=== PATIENT | female | born 1995 | race Caucasian/White ===

== ENCOUNTER 2016-09-27 08:00 | Outpatient (CLI) | payer BC | END 2016-09-27 08:01 | disposition home or self-care (01) | DX: R51 Headache (principal) ==

== ENCOUNTER 2017-01-29 15:20 | Outpatient (CLI) | payer BC | END 2017-01-29 15:21 | LOC: LAB.N 15:20 | PROVIDERS: ATTEND Physician Assistant | DX: R19.7 Diarrhea, unspecified (principal) | CPT/HCPCS: 36415; 86762; 86765 ==

== ENCOUNTER 2017-01-31 17:35 | Outpatient (CLI) | payer BC ==
[2017-02-05 11:22] LABS: TEST RESULT REPORT (())
== END 2017-01-31 17:36 | disposition home or self-care (01) ==
LOC: LAB.R 17:35
PROVIDERS: ATTEND Physician Assistant
DX: R19.7 Diarrhea, unspecified (principal)
CPT/HCPCS: 81599; 83630; 87045; 87046; 87177; 87209; 87329; 87338; 87493

== ENCOUNTER 2017-02-05 14:11 | Outpatient (CLI) | payer BC ==
--- NOTE | 2017-02-05 16:33 | XRAY Report ---
ACUTE ABDOMEN SERIES: 02/05/2017 CLINICAL INDICATION: Acute on chronic diarrhea. FINDINGS: Supine and upright views of the abdomen and a frontal view of the chest were obtained. The cardiac silhouette is within normal limits. The lungs are clear. No effusion or pneumothorax is p resent. The bowel gas pattern is normal. No free intraperitoneal gas is appreciated. No small bowel dilatatio n is seen. IMPRESSION: NORMAL ACUTE ABDOMEN SERIES. JOB #: [id number] EXT JOB #:[id number]
== END 2017-02-05 14:12 | disposition home or self-care (01) ==
LOC: DI.N 14:11
PROVIDERS: ATTEND Physician Assistant
DX: R19.7 Diarrhea, unspecified (principal)
CPT/HCPCS: 74022

== ENCOUNTER 2020-07-11 15:07 | Outpatient (CLI) | payer MEDICAID ==
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
== END 2020-07-11 15:08 | disposition home or self-care (01) ==
LOC: SC 15:07
PROVIDERS: ATTEND Internal Medicine Pulmonary Disease
DX: R53.83 Other fatigue (principal); R06.83 Snoring; G47.8 Other sleep disorders; R51.9 Headache, unspecified; R41.89 Other symptoms and signs involving cognitive functions and awareness; E66.3 Overweight; Z68.26 Body mass index [BMI] 26.0-26.9, adult; F51.04 Psychophysiologic insomnia

== ENCOUNTER 2020-07-14 17:01 | Outpatient (CLI) | payer MEDICAID ==
[2020-07-14 21:11] LABS: THYROID STIMULATING HORMONE 1.81 uIU/mL (0.34-5.60)
[2020-07-14 21:14] LABS: FREE T4 (FREE THYROXINE) 0.71 ng/dL (0.58-1.64)
== END 2020-07-14 17:02 | disposition home or self-care (01) ==
LOC: DI.N 17:01
PROVIDERS: ATTEND Family Medicine Sports Medicine
DX: R63.5 Abnormal weight gain (principal)
CPT/HCPCS: 36415; 84439; 84443

== ENCOUNTER 2020-07-25 13:27 | Outpatient (CLI) | payer MEDICAID | END 2020-07-25 13:28 | disposition home or self-care (01) | LOC: SC 13:27 | PROVIDERS: ATTEND Internal Medicine Pulmonary Disease | DX: R53.83 Other fatigue (principal); R09.02 Hypoxemia; E66.3 Overweight; Z68.26 Body mass index [BMI] 26.0-26.9, adult | CPT/HCPCS: 95806 ==

== ENCOUNTER 2020-08-03 10:28 | Outpatient (CLI) | payer MEDICAID ==
--- NOTE | 2020-08-03 10:32 | SLEEP CARE CONSULTATION ---
Information from patient questionnaire entered by Ema Brower. I have reviewed and concur with the information entered by Ema Brower. This document represents the service I personally performed and the decisions made by , Sarah Martinez ARNP. History of Present Illness Service Date and Time: 08/03/2020 1020 Initial [place] Sleepiness Scale score: 0 (in 2019) Current [place] Sleepiness Scale score: 1 Additional HPI information: ADRIANA FRANCIS returns via Telehealth visit for follow up and results of the recently performed home sleep study. The patient was informed of the following findings: She had no significant sleep disordered breathing with an average AHI of 3.2 and rachelle oxygen saturation of 88%. I explained the pathophysiology behind obstructive sleep apnea. Patient does not have sleep apnea and was advised how weight gain could increase the risk of developing sleep apnea in the future. I strongly encouraged the patient to lose weight. Patient does not have significant sleep disordered breathing but has slightly elevated AHI in supine position so advised positional therapy. Methods to achieve positional management therapy were discussed; such as, positioning with pillows, wearing a T-shirt with tennis balls sewn into the back, Rematee shirt, Zzomba belt and Slumberbump belt. Pamphlets provided on how to obtain the commercially available products. Patient has light snoring. Snoring can be reduced by weight loss. Weight loss is best achieved with diet consult. Patient instructed to contact PCP for referral. Snoring can also be treated with an oral appliance from a dentist. Advised to check insurance coverage. In addition, an ENT evaluation can be do to see if other treatment is indicated. Sleep Study - Results Type of Sleep Study: Home sleep study Prior sleep studies: No Polysomnography/Home Sleep Study results: Physician Impression: The quality of the study is good. The length of the study is adequate (> 240 minutes). Please also see the tabulated and graphic data. 1. Obstructive Sleep Apnea-Hypopnea (ICD-10 G47.33), none, with an AHI of 3.2/hr and rachelle SaO2 of 88%. During the study, the patient had 9 apneas (9 obstructive, 0 central, 0 mixed) and 6 hypopneas. The longest episode lasted 30.0 seconds. The respiratory events occurred more frequently during supine sleep (supine AHI was 5.1 and non-supine, 0.92). 2. Hypoxemia (ICD-10 R09.02), minimal, with the lowest oxygen saturation of 88 % and 0.2 minutes with SaO2 under 90%. Baseline oxygen saturation was normal (Average oxygen saturation was 96%). Recommendation: No treatment is necessary. However, because the supine AHI was slightly elevated at 5.1, the patient should avoid sleeping supine. If there is a strong suspicion for sleep- disordered breathing, an in-laboratory polysomnography should be considered Allergies and Home Medications Drug allergies reviewed: Yes (fluoxetine) Home medication list reviewed: Yes (no changes) Review of Systems Review of systems same as previous: Yes (no changes) Physical Exam Vital signs obtained and entered by: Telehealth visit to limit exposure during Covid pandemic Height: 5 ft 3 in Impression and Plan 1. Snoring but no significant sleep disordered breathing. Patient did have a mildly elevated supine AHI of 5.1 and patient was advised to avoid supine sleep. Patient advised that often weight loss will reduce snoring as well as apnea risk. An oral appliance can also be used for snoring. This would require a dental consultation. Patient cautioned not to use other online appliances as can cause bite issues. A list of accredited dentists in area and one local dentist who makes oral appliances given. Patient is advised to check if insurance will cover. An ENT consult can also be helpful to determine if any other treatment is an option. * Attempt to lose weight * Avoid supine sleep * Avoid alcohol consumption near bedtime * The patient is cautioned about driving until sleepiness is completely resolved. * Return as needed. Counseling Topics: Weight loss health impact Visit Type: Telehealth Video Video Type: Kary Patient Location: Home Location of Provider: Office Patient agrees and consents to this telehealth visit type: Yes Time Spent with Patient (minutes): 15 Provider Statement: I spent 100% of the Telehealth Video Call with the patient with greater than 50% spent counseling the patient and coordination of care.
== END 2020-08-03 10:29 | disposition home or self-care (01) ==
LOC: SC 10:28
PROVIDERS: ATTEND Nurse Practitioner Family
DX: R06.83 Snoring (principal); R53.83 Other fatigue; G47.8 Other sleep disorders; R51.9 Headache, unspecified

== ENCOUNTER 2020-08-21 15:50 | Outpatient (CLI) | payer MEDICAID | END 2020-08-21 23:59 | disposition home or self-care (01) | LOC: COV 15:50 | PROVIDERS: ATTEND Family Medicine | DX: R50.9 Fever, unspecified (principal); Z20.828 Contact with and (suspected) exposure to other viral communicable diseases; R05 Cough; R06.02 Shortness of breath; R09.81 Nasal congestion; R53.83 Other fatigue; R11.2 Nausea with vomiting, unspecified ==

== ENCOUNTER 2020-08-28 07:00 | Outpatient (CLI) | payer MEDICAID ==
[2020-08-28 16:31] LABS: MUDS CUTOFF CONCENTRATIONS CUTOFF CONC BELOW:
[2020-08-28 16:47] LABS: BILIRUBIN,URINE NEGATIVE (NEGATIVE); GLUCOSE, URINE (UA) NEGATIVE (NEGATIVE); KETONES,URINE (UA) NEGATIVE (NEGATIVE); LEUKOCYTE ESTERASE, URINE NEGATIVE (NEGATIVE); NITRITE,URINE NEGATIVE (NEGATIVE); OCCULT BLOOD,URINE TRACE-INTA (NEGATIVE); PH,URINE 5.5 PH (5.0-7.5); PROTEIN,URINE NEGATIVE (NEGATIVE); UROBILINOGEN,URINE 0.2 (NORMAL) E.U./dL (NORMAL)
[2020-08-28 16:49] LABS: CLARITY,URINE CLEAR (CLEAR)
[2020-08-28 16:57] LABS: AMPHETAMINE SCREEN,URINE NEGATIVE (NEGATIVE); BENZODIAZEPINES SCREEN, URINE NEGATIVE (NEGATIVE); COCAINE SCREEN URINE NEGATIVE (NEGATIVE); METHADONE SCREEN, URINE NEGATIVE (NEGATIVE); METHAMPHETAMINES SCREEN, URINE NEGATIVE (NEGATIVE); OPIATE SCREEN, URINE NEGATIVE (NEGATIVE); OXYCODONE SCREEN, URINE NEGATIVE (NEGATIVE); PROPOXYPHENE SCREEN, URINE NEGATIVE (NEGATIVE); TRICYCLIC ANTIDEPRESSANT,URINE NEGATIVE (NEGATIVE)
[2020-08-28 17:00] LABS: BACTERIA,URINE Many /HPF (None Seen); RBC,URINE 0-5 /HPF (0-5); SQUAMOUS EPITHELIAL CELL,UR FEW Squamous (<= Few)
== END 2020-08-28 23:59 | disposition home or self-care (01) ==
LOC: LAB.R 07:00
PROVIDERS: ATTEND Advanced Practice Midwife
DX: Z34.90 Encounter for supervision of normal pregnancy, unspecified, unspecified trimester (principal)
CPT/HCPCS: 80306; 81001; 87086

== ENCOUNTER 2020-09-04 08:00 | Outpatient (CLI) | payer MEDICAID ==
[2020-09-04 20:06] LABS: CANDIDA GROUP DNA NEGATIVE (NEGATIVE); CANDIDA KRUSEI DNA NEGATIVE (NEGATIVE); TRICHOMONAS VAGINALIS DNA NEGATIVE (NEGATIVE)
== END 2020-09-04 23:59 | disposition home or self-care (01) ==
LOC: LAB.R 08:00
PROVIDERS: ATTEND Obstetrics & Gynecology
DX: N89.8 Other specified noninflammatory disorders of vagina (principal)
CPT/HCPCS: 87661; 87801

== ENCOUNTER 2020-09-12 15:38 | Outpatient (CLI) | payer MEDICAID ==
--- NOTE | 2020-09-12 17:44 | Ultrasound Report ---
PROCEDURE: OB First Trimester w/TV INDICATIONS: SUPERVISION OF NORMAL OUTSIDE/PRIOR DATING DATA: Last menstrual period (LMP): Unknown. LMP-based estimated date of delivery (JUANI): Not applicable. First dating scan (date and location): 09/12/2020. Estimated date of delivery (JUANI) from first dating scan: 05/01/2021. TECHNIQUE: Real-time scanning was performed of the fetus and maternal pelvic organs, with image documentation. Endovaginal scanning was also performed to better visualize the fetus and maternal ovaries. COMPARISON: None. FINDINGS: Embryo: Single living intrauterine gestation with an estimated sonographic gestational age of approx imately 7 weeks and 0 days based off crown-rump length measurement of approximately 1.0 cm. By mean g estational sac diameter of 2.5 cm, estimated gestational age is approximately 7 weeks and 4 days. Fet al heart rate measured 132 bpm. Trace perigestational hemorrhage noted. Measurement variability in dating: +/- 4 weeks by LMP, +/- 7 days by mean sac diameter (use before 6 weeks gestation if crown-rump length not able to be measured), +/- 5 days by crown-rump length (6-12 weeks gestation). Maternal organs: Ovaries demonstrate presence of a right corpus luteal cyst measuring 1.9 x 1.9 x 1. 8 cm. No suspicious ovarian/adnexal mass lesions.. IMPRESSION: Single living intrauterine gestation with an estimated sonographic gestational age of approximately 7 weeks and 0 days based off crown-rump length measurement of 1.0 cm. Estimated date of delivery is . Small perigestational hemorrhage. Routine follow-up second trimester anatomic screening survey is recommended. Reviewed by: Cristobal Brasher MD on 09/12/2020 5:42 PM PST Approved by: Cristobal Brasher MD on 09/12/2020 5:42 PM PST Station ID: [id number]
== END 2020-09-12 15:39 | disposition home or self-care (01) ==
LOC: DI 15:38
PROVIDERS: ATTEND Nurse Practitioner Obstetrics & Gynecology
DX: Z34.91 Encounter for supervision of normal pregnancy, unspecified, first trimester (principal)

== ENCOUNTER 2020-09-21 08:00 | Outpatient (CLI) | payer MEDICAID ==
[2020-09-21 10:40] LABS: BASOPHILS % (AUTO) 0.4 %; EOSINOPHILS % (AUTO) 0.4 %; HGB - HEMOGLOBIN 13.1 g/dL (12.0-16.0); LYMPHOCYTES # (AUTO) 2.1 10^3/uL (1.5-3.5); LYMPHOCYTES % (AUTO) 23.3 %; MEAN CORPUSCULAR HEMOGLOBIN 28.7 pg (27.0-31.0); MEAN CORPUSCULAR HGB CONC 32.8 g/dL (32.0-36.0); MEAN CORPUSCULAR VOLUME 87.7 fL (81.0-99.0); MEAN PLATELET VOLUME 10.5 fL (7.9-10.8); MONOCYTES # (AUTO) 0.5 10^3/uL (0.0-1.0); MONOCYTES % (AUTO) 5.9 %; NEUTROPHILS # (AUTO) 6.3 10^3/uL (1.5-6.6); NEUTROPHILS % (AUTO) 69.7 %; PLT - PLATELET COUNT 279 10^3/uL (130-450); RED BLOOD COUNT 4.56 10^6/uL (4.20-5.40); RED CELL DISTRIBUTION WIDTH 13.6 % (12.0-15.0)
[2020-09-21 10:52] LABS: ALBUMIN 3.9 g/dL (3.2-5.5); ALBUMIN/GLOBULIN RATIO 1.2 (1.0-2.2); BILIRUBIN,TOTAL 0.4 mg/dL (0.2-1.0); CALCIUM 9.3 mg/dL (8.5-10.3); CREATININE 0.6 mg/dL (0.4-1.0); TOTAL PROTEIN 7.2 g/dL (6.7-8.2)
[2020-09-21 19:37] LABS: CANDIDA GROUP DNA NEGATIVE (NEGATIVE); CANDIDA KRUSEI DNA NEGATIVE (NEGATIVE); TRICHOMONAS VAGINALIS DNA NEGATIVE (NEGATIVE)
[2020-09-21 22:41] LABS: TRICHOMONAS VAGINALIS DNA NEGATIVE (NEGATIVE)
[2020-09-23 08:17] LABS: HIV AG/AB 4TH GEN NON-REACTIVE (NON-REACTIVE)
[2020-09-23 12:52] LABS: HEPATITIS B SURFACE ANTIGEN NON-REACTIVE (NON-REACTIVE); HEPATITIS C ANTIBODY NON-REACTIVE (NON-REACTIVE)
== END 2020-09-21 23:59 | disposition home or self-care (01) ==
LOC: LAB 08:00
PROVIDERS: ATTEND Advanced Practice Midwife
DX: O26.899 Other specified pregnancy related conditions, unspecified trimester (principal); N89.8 Other specified noninflammatory disorders of vagina; Z36.89 Encounter for other specified antenatal screening; Z12.4 Encounter for screening for malignant neoplasm of cervix; Z11.3 Encounter for screening for infections with a predominantly sexual mode of transmission
CPT/HCPCS: 36415; 80053; 81599; 82239; 85025; 86592; 86762; 86787; 86803; 86850; 86900; 86901; 87340; 87389; 87491; 87591; 87661; 87801

== ENCOUNTER 2020-12-01 08:00 | Outpatient (CLI) | payer MEDICAID ==
[2020-12-01 18:26] LABS: BASOPHILS % (AUTO) 0.3 %; EOSINOPHILS # (AUTO) 0.1 10^3/uL (0.0-0.7); EOSINOPHILS % (AUTO) 0.4 %; HCT - HEMATOCRIT 34.9 % (37.0-47.0); HGB - HEMOGLOBIN 11.5 g/dL (12.0-16.0); LYMPHOCYTES # (AUTO) 1.9 10^3/uL (1.5-3.5); LYMPHOCYTES % (AUTO) 15.3 %; MEAN CORPUSCULAR HEMOGLOBIN 29.3 pg (27.0-31.0); MEAN PLATELET VOLUME 11.8 fL (7.9-10.8); MONOCYTES # (AUTO) 0.8 10^3/uL (0.0-1.0); MONOCYTES % (AUTO) 6.5 %; NEUTROPHILS # (AUTO) 9.4 10^3/uL (1.5-6.6); NEUTROPHILS % (AUTO) 77.2 %; PLT - PLATELET COUNT 272 10^3/uL (130-450); RED BLOOD COUNT 3.92 10^6/uL (4.20-5.40); RED CELL DISTRIBUTION WIDTH 14.6 % (12.0-15.0); WHITE BLOOD COUNT 12.2 x10^3/uL (4.8-10.8)
[2020-12-01 18:48] LABS: ALBUMIN 3.3 g/dL (3.2-5.5); ALBUMIN/GLOBULIN RATIO 0.9 (1.0-2.2); BILIRUBIN,TOTAL 0.3 mg/dL (0.2-1.0); CALCIUM 8.6 mg/dL (8.5-10.3); CREATININE 0.4 mg/dL (0.4-1.0); POTASSIUM 3.3 mmol/L (3.5-5.0); TOTAL PROTEIN 6.8 g/dL (6.7-8.2)
[2020-12-01 19:16] LABS: CREATININE,URINE 54.3 mg/dL
[2020-12-01 19:19] LABS: TOTAL PROTEIN,URINE TIMED < 6 mg/dL
== END 2020-12-01 23:59 | disposition home or self-care (01) ==
LOC: LAB.N 08:00
PROVIDERS: ATTEND Family Medicine Sports Medicine
DX: R51.9 Headache, unspecified (principal); Z20.822 Contact with and (suspected) exposure to COVID-19
CPT/HCPCS: 36415; 80053; 82570; 84156; 85025

== ENCOUNTER 2020-12-14 08:00 | Outpatient (CLI) | payer MEDICAID ==
[2020-12-14 20:11] LABS: BACTERIAL VAGINOSIS DNA NEGATIVE (NEGATIVE); CANDIDA GLABRATA DNA NEGATIVE (NEGATIVE); CANDIDA GROUP DNA POSITIVE (NEGATIVE); CANDIDA KRUSEI DNA NEGATIVE (NEGATIVE); TRICHOMONAS VAGINALIS DNA NEGATIVE (NEGATIVE)
== END 2020-12-14 23:59 | disposition home or self-care (01) ==
LOC: DI 08:00
PROVIDERS: ATTEND Advanced Practice Midwife
DX: O23.599 Infection of other part of genital tract in pregnancy, unspecified trimester (principal); Z36.89 Encounter for other specified antenatal screening; Z53.9 Procedure and treatment not carried out, unspecified reason
CPT/HCPCS: 87661; 87801

== ENCOUNTER 2021-01-17 16:57 | Outpatient (CLI) | payer MEDICAID ==
--- NOTE | 2021-01-18 13:38 | Ultrasound Report ---
PROCEDURE: OB Biophysical Profile INDICATIONS: SUPERVISION OF NORMAL OUTSIDE/PRIOR DATING DATA: Last menstrual period (LMP): Not available. LMP-based estimated date of delivery (JUANI): Not available. First dating scan (date and location): 09/12/2020. Estimated date of delivery (JUANI) from first dating scan: 05/01/2021. TECHNIQUE: Real-time scanning was performed of the fetus, with image documentation and biometric tino surements. Biophysical profile was also obtained. Endovaginal scanning: Not needed. COMPARISON: 09/12/2020 OB ultrasound. FINDINGS: General: A single living intrauterine gestation is present. Presentation: Transverse head to the maternal right. Placenta: Placental position is anterior, without previa. Amniotic fluid index: 15.4 cm, 50th percentile for gestational age. heart rate: 137 beats per minute. Maternal cervical canal: 5.2 cm long; normal length is 2.5 cm or more. Biophysical profile: Tone: 2 points. Movement: 2 points. Respiration: 2 points. Largest pocket of fluid: 2 points. IMPRESSION: Biophysical profile yields 8 of 8 possible points. Amniotic fluid volume is normal. The delivery date is projected to be centered on 05/01/2021. Reviewed by: Rojelio Rand MD on 01/18/2021 1:37 PM PDT Approved by: Rojelio Rand MD on 01/18/2021 1:37 PM PDT Station ID: [id number]
== END 2021-01-17 16:58 | disposition home or self-care (01) ==
LOC: DI 16:57
PROVIDERS: ATTEND Advanced Practice Midwife
DX: Z34.90 Encounter for supervision of normal pregnancy, unspecified, unspecified trimester (principal)

== ENCOUNTER 2021-01-17 18:05 | Outpatient (CLI) | payer MEDICAID ==
--- NOTE | 2021-01-17 19:52 | PROVIDER PROGRESS NOTE ---
- HPI Chief Complaint: Decreased movement - Plan Plan: S: Karly is a 25yo @ 25.1wks gestation who presents to [facility] with c/o not feeling her baby move. She states she has not been able to feel the baby move for the duration of her and she was instructed to present for heart tones by 25wks gestation if she had not felt her baby move yet which she has not. She denies vaginal bleeding, leakage of fluid, or contractions. Pt states she had an ultrasound earlier today and did feel reassured by seeing the baby move on the ultrasound. She reports she is feeling super anxious and that is why she is here. O: FHR auscultated at 145bpm. No U/S report available yet for review from today's ultrasound - will call pt with results once received if abnormal. Assessment: 25yo @ 25.1wks gestation Decreased movement Plan: Pt released home with precautions. Has emergency contact number. Pt verbalized understanding and agrees to above plan. She denies further questions or concerns at this time. FINAL DIAGNOSIS: Decreased movement
== END 2021-01-17 19:05 | disposition home or self-care (01) ==
LOC: WFO 18:05 → FBP 18:07 → WFO 19:05
PROVIDERS: ATTEND Nurse Practitioner Obstetrics & Gynecology
DX: O36.8120 Decreased fetal movements, second trimester, not applicable or unspecified (principal); Z3A.25 25 weeks gestation of pregnancy; Z34.90 Encounter for supervision of normal pregnancy, unspecified, unspecified trimester

== ENCOUNTER 2021-01-29 12:12 | Outpatient (CLI) | payer MEDICAID ==
[2021-01-29 13:29] LABS: HCT - HEMATOCRIT 32.8 % (37.0-47.0); HGB - HEMOGLOBIN 10.6 g/dL (12.0-16.0); MEAN CORPUSCULAR HEMOGLOBIN 28.3 pg (27.0-31.0); MEAN CORPUSCULAR HGB CONC 32.3 g/dL (32.0-36.0); MEAN CORPUSCULAR VOLUME 87.5 fL (81.0-99.0); MEAN PLATELET VOLUME 10.8 fL (7.9-10.8); RED BLOOD COUNT 3.75 10^6/uL (4.20-5.40); RED CELL DISTRIBUTION WIDTH 13.6 % (12.0-15.0); WHITE BLOOD COUNT 13.1 x10^3/uL (4.8-10.8)
== END 2021-01-29 12:13 | disposition home or self-care (01) ==
LOC: LAB 12:12
PROVIDERS: ATTEND Advanced Practice Midwife
DX: Z34.90 Encounter for supervision of normal pregnancy, unspecified, unspecified trimester (principal); Z36.89 Encounter for other specified antenatal screening
CPT/HCPCS: 36415; 82950; 85027

== ENCOUNTER 2021-02-22 16:56 | Outpatient (CLI) | payer MEDICAID ==
[2021-02-22 17:06] VITALS: BP 101/59
--- NOTE | 2021-02-23 10:17 | PROCEDURE REPORT ---
- HPI Diagnosis/Indication for NST: Decreased movement Current EDU 05/01/21 Gestation 30 Weeks and 2 Days 2 Para 0 Vital Signs Temperature 36.9 C 02/22/21 17:04 Heart Rate 116 H 02/22/21 17:04 Respiratory Rate 16 02/22/21 17:04 Blood Pressure 101/59 L 02/22/21 17:04 O2 Saturation 98 02/22/21 17:04 Temperature 36.9 C 02/22/21 17:04 Heart Rate 116 H 02/22/21 17:04 Respiratory Rate 16 02/22/21 17:04 Blood Pressure 101/59 L 02/22/21 17:04 O2 Saturation 98 02/22/21 17:04 - NST Procedure NST Procedure Start Date 02/22/21 Start Time 17:01 Stop Time 17:22 Vibroacoustic Stimulation Used No - Results and Plan Findings/Impression: Encouraged presentation to L&D for NST after office visit with report of decreased movement. Dopplers appropriate in office. Walked patient to L&D Diagnosis: Decreased movement NST perform date 02/22/2021 NST read date 02/22/2021 Impression: Baseline 145, moderate variability, 15x15 accels, no decels Reactive Plan: Continue with routine care Call or present for any future episodes of decreased movement
== END 2021-02-22 17:36 | disposition home or self-care (01) ==
LOC: WFO 16:56 → FBP 16:57 → WFO 17:36
PROVIDERS: ATTEND Advanced Practice Midwife
DX: O36.8130 Decreased fetal movements, third trimester, not applicable or unspecified (principal); Z3A.30 30 weeks gestation of pregnancy
CPT/HCPCS: 59025

== ENCOUNTER 2021-02-23 08:00 | Outpatient (CLI) | payer MEDICAID ==
[2021-02-23 20:58] LABS: BACTERIAL VAGINOSIS DNA NEGATIVE (NEGATIVE); CANDIDA GLABRATA DNA NEGATIVE (NEGATIVE); CANDIDA GROUP DNA NEGATIVE (NEGATIVE); CANDIDA KRUSEI DNA NEGATIVE (NEGATIVE); TRICHOMONAS VAGINALIS DNA NEGATIVE (NEGATIVE)
== END 2021-02-23 08:01 | disposition home or self-care (01) ==
LOC: LAB.WC 08:00
PROVIDERS: ATTEND Advanced Practice Midwife
DX: N76.0 Acute vaginitis (principal)
CPT/HCPCS: 87661; 87801

== ENCOUNTER 2021-03-27 04:54 | Outpatient (CLI) | payer MEDICAID ==
[2021-03-27 06:12] VITALS: BP 106/78
--- NOTE | 2021-03-27 14:55 | PROVIDER PROGRESS NOTE ---
- HPI Chief Complaint: Labor Check Current : Current EDU 05/01/21 Gestation 35 Weeks and 0 Days 2 Para 0 Vital Signs Temperature 36.8 C 03/27/21 05:08 Heart Rate 109 H 03/27/21 05:08 Respiratory Rate 16 03/27/21 05:08 Blood Pressure 119/98 H 03/27/21 05:08 O2 Saturation 99 03/27/21 05:08 Temperature 36.8 C 03/27/21 05:08 Heart Rate 89 03/27/21 06:10 Respiratory Rate 16 03/27/21 05:08 Blood Pressure 106/78 03/27/21 06:10 O2 Saturation 99 03/27/21 05:08 - Procedures OB Procedure Performed: NST NST Procedure: NST Procedure Start Date 03/27/21 Start Time 05:13 Stop Time 06:12 Vibroacoustic Stimulation Used No Patient States Movement Yes - Plan Plan: Karly is a 25yo at 35.0wks gestation who called at approximately 0300 reporting three days of diarrhea and cramping. Patient encouraged to present to Labor and Delivery for labor evaluation. Evaluated in L&D. Some uterine irritability noted, abdomen soft, gravid, nontender. NST perform date: 03/27/2021 NST read date: 03/27/2021 Findings: Baseline 135, moderate variability, accels, no decels Impression: Reassuring Uterine activity- mild and infrequent Decline imodium. Declined IV hydration Assessment: 25yo at 35.0wks gestation- not in labor Plan: Continue with routine care Hydrate and rest, present if cramping and/or diarrhea continues or worsens Final Diagnosis: False Labor
== END 2021-03-27 06:29 | disposition home or self-care (01) ==
LOC: WFO 04:54 → FBP 04:58 → WFO 06:29
PROVIDERS: ATTEND Advanced Practice Midwife
DX: O47.03 False labor before 37 completed weeks of gestation, third trimester (principal); O99.891 Other specified diseases and conditions complicating pregnancy; R19.7 Diarrhea, unspecified; Z3A.35 35 weeks gestation of pregnancy
CPT/HCPCS: 59025; 99213

== ENCOUNTER 2021-04-16 16:03 | Outpatient (CLI) | payer MEDICAID ==
[2021-04-16 16:31] VITALS: BP 119/63
--- NOTE | 2021-04-16 23:39 | PROCEDURE REPORT ---
- HPI Diagnosis/Indication for NST: Decreased movement Current EDU 05/01/21 Gestation 37 Weeks and 6 Days 2 Para 0 Vital Signs Temperature 36.9 C 04/16/21 16:15 Heart Rate 95 04/16/21 16:15 Respiratory Rate 18 04/16/21 16:15 Blood Pressure 119/63 04/16/21 16:15 O2 Saturation 98 04/16/21 16:15 Temperature 36.9 C 04/16/21 16:15 Heart Rate 95 04/16/21 16:15 Respiratory Rate 18 04/16/21 16:15 Blood Pressure 119/63 04/16/21 16:15 O2 Saturation 98 04/16/21 16:15 - NST Procedure NST Procedure Start Date 04/16/21 Start Time 16:13 Stop Time 16:34 Vibroacoustic Stimulation Used No Patient States Movement No: Decreased - Results and Plan Plan: Karly presents today for NST secondary to decreased movement after her routine office visit. NST performed 04/16/2021 NST read 04/16/2021 NST reactive. FHR baseline 140, moderate variability, + accels, no decels Occasional mild contractions appreciated via tocometry. Not appreciated by pt. Pt released home with precautions. She verbalized understanding and agrees to above plan. She denies further questions or concerns at this time. Continue routine care. FINAL DIAGNOSIS: Decreased movement.
== END 2021-04-16 16:40 | disposition home or self-care (01) ==
LOC: WFO 16:03 → FBP 16:04 → WFO 16:40
PROVIDERS: ATTEND Nurse Practitioner Obstetrics & Gynecology
DX: O36.8130 Decreased fetal movements, third trimester, not applicable or unspecified (principal); Z3A.37 37 weeks gestation of pregnancy
CPT/HCPCS: 59025

== ENCOUNTER 2021-12-09 19:07 | Emergency (ER) | payer MEDICAID ==
[2021-12-09 19:49] LABS: RAPID STREP SCREEN Negative (Negative)
[2021-12-09] MEDS ORDERED: ACETAMINOPHEN 325 MG TABLET PO STA (20:27)
--- NOTE | 2021-12-09 21:26 | XRAY Report ---
PROCEDURE: Chest 2 View X-Ray INDICATIONS: cough TECHNIQUE: 2 view(s) of the chest. COMPARISON: CXR 02/01/2014. FINDINGS: Surgical changes and devices: None. Lungs and pleura: No pleural effusions or pneumothorax. Lungs are clear. Mediastinum: Mediastinal contours are normal. Heart size is normal. Bones and chest wall: No suspicious bony abnormalities. Soft tissues appear unremarkable. IMPRESSION: No acute cardiopulmonary abnormality. Reviewed by: Gustavo Krishna MD on 12/09/2021 9:24 PM PDT Approved by: Gustavo Krishna MD on 12/09/2021 9:24 PM PDT Station ID: [id number]
[2021-12-09 21:28] LABS: B. PARAPERTUSSIS- RESP PCR PAN NOT DETECTED; B. PERTUSSIS- RESP PCR PANEL NOT DETECTED; C. PNEUMONIAE- RESP PCR PANEL NOT DETECTED; CORONAVIRUS 229E-RESP PCR NOT DETECTED; CORONAVIRUS HKU1-RESP PCR NOT DETECTED; CORONAVIRUS NL63-RESP PCR NOT DETECTED; CORONAVIRUS OC43-RESP PCR NOT DETECTED; HUMAN METAPNEUMOVIRUS NOT DETECTED; INFLUENZA A- RESP PCR PANEL NOT DETECTED; INFLUENZA B - RESP PCR PANEL NOT DETECTED; M. PNEUMONIAE- RESP PCR PANEL NOT DETECTED; PARAINFLUENZA VIRUS 1 NOT DETECTED; PARAINFLUENZA VIRUS 2 NOT DETECTED; PARAINFLUENZA VIRUS 3 NOT DETECTED; PARAINFLUENZA VIRUS 4 NOT DETECTED; RHINOVIRUS/ENTEROVIRUS DETECTED; RSV- RESP PCR PANEL NOT DETECTED; SARS-CoV-2 -RESP PCR PANEL NOT DETECTED
--- NOTE | 2021-12-09 21:38 | ED Physician Documentation ---
History of Present Illness - Stated complaint Stated Complaint: WEAK,BODYACHES,FEVER,SORE THROAT - Chief complaint Chief Complaint: Heent - History obtained from History obtained from: Patient, Family - History of Present Illness Timing: Last night Pain level max: 7 Pain level now: 6 - Additonal information Additional information: 26-year-old female complaining of body aches, fatigue, rhinorrhea, congestion, sore throat for the past 24 hours. Her child is sick with same. Worse with eating and drinking, nothing makes it better. She is currently breast-feeding. Has had her Covid vaccinations. 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 : Kidney stones HEENT: None Psych: Anxiety Musculoskeletal: None Derm: None Other Past Medical History: Hypercholesteronemia - Past Surgical History Past Surgical History: Yes - Present Medications Home Medications: Ambulatory Orders Medication Instructions Recorded Confirmed No Known Home Medications 12/09/21 12/09/21 - Allergies Allergies/Adverse Reactions: Allergies Allergy/AdvReac Type Severity Reaction Status Date / Time Naylor And Derivatives Allergy Respiratory Verified 12/09/21 19:18 - Social History Does the pt smoke?: No Smoking Status: Never smoker Does the pt drink ETOH?: Yes Does the pt have substance abuse?: No - Immunizations Immunizations are current?: Yes - POLST Patient has POLST: No PD ED PE NORMAL - Vitals Vital signs reviewed: Yes - General General: Alert and oriented X 3, No acute distress, Well developed/nourished - HEENT HEENT: PERRL, Ears normal, Moist mucous membranes, Pharynx benign - Neck Neck: Supple, no meningeal sign - Cardiac Cardiac: RRR - Respiratory Respiratory: No respiratory distress, Clear bilaterally - Abdomen Abdomen: Soft, Non tender, Non distended - Derm Derm: Warm and dry - Extremities Extremities: No edema, No calf tenderness / cord - Neuro Neuro: Alert and oriented X 3 - Psych Psych: Normal mood, Normal affect Results - Vitals Vitals: Vital Signs - 24 hr 12/09/21 12/09/21 19:11 21:40 Temperature 37.8 C 36.8 C Heart Rate 97 76 Respiratory 20 16 Rate Blood Pressure 110/65 100/69 O2 Saturation 100 100 Oxygen O2 Source Room air - Labs Labs: Laboratory Tests 12/09/21 12/09/21 19:16 20:30 Nasal Adenovirus (PCR) NOT DETECTED Nasal B. parapertussis DNA (PCR) NOT DETECTED Nasal Coronavir 229E PCR NOT DETECTED Nasal Coronavir HKU1 PCR NOT DETECTED Nasal Coronavir NL63 PCR NOT DETECTED Nasal Coronavir OC43 PCR NOT DETECTED Nasal Enterovir/Rhinovir PCR DETECTED A Nasal Influenza B PCR NOT DETECTED Nasal Influenza A PCR NOT DETECTED Nasal Parainfluen 1 PCR NOT DETECTED Nasal Parainfluen 2 PCR NOT DETECTED Nasal Parainfluen 3 PCR NOT DETECTED Nasal Parainfluen 4 PCR NOT DETECTED Nasal RSV (PCR) NOT DETECTED Nasal B.pertussis DNA PCR NOT DETECTED Nasal C.pneumoniae (PCR) NOT DETECTED Juanjose Human Metapneumo PCR NOT DETECTED Nasal M.pneumoniae (PCR) NOT DETECTED Nasal SARS-CoV-2 (PCR) NOT DETECTED Group A Strep Rapid Negative - Rads (name of study) Chest x-ray Radiology: Final report received, EMP read contemporaneously, See rad report (No acute abnormality) PD MEDICAL DECISION MAKING - ED course Complexity details: reviewed results, re-evaluated patient, considered differential, d/w patient ED course: Patient tested positive for rhinovirus. Negative for rapid strep. No pneumonia on x-ray. Her child is sick with same. We will continue supportive care. Will avoid decongestants to avoid any interruption in her milk supply. Patient counseled regarding signs and symptoms for which I believe and urgent re- evaluation would be necessary. Patient with good understanding of and agreement to plan and is comfortable going home at this time This document was made in part using voice recognition software. While efforts are made to proofread this document, sound alike and grammatical errors may occur. Departure - Departure Disposition: 01 Home, Self Care Clinical Impression: Rhinovirus Condition: Good Instructions: ED Viral Syndrome Follow-Up: ELIDA CHAVEZ MD [Primary Care Provider] - As Needed Comments: You have tested positive for rhinovirus tonight. You can use Motrin or Tylenol as needed at home. Drink plenty of fluids. Return if you worsen. Forms: Activity restrictions Discharge Date/Time: 12/09/21 21:45
[2021-12-09 21:48] VITALS: BP 100/69
== END 2021-12-09 21:45 | disposition home or self-care (01) ==
LOC: ED 19:07
DX: B34.8 Other viral infections of unspecified site (principal)
CPT/HCPCS: 71046; 87070; 87430; 87633; 99282; 99284; A9270

== ENCOUNTER 2021-12-18 08:00 | Outpatient (CLI) | payer MEDICAID | END 2021-12-18 08:01 | disposition home or self-care (01) | LOC: LAB.N 08:00 | PROVIDERS: ATTEND Nurse Practitioner | DX: J18.9 Pneumonia, unspecified organism (principal); Z20.822 Contact with and (suspected) exposure to COVID-19 ==